=== PATIENT | female | born 1995 | race Caucasian/White ===

== ENCOUNTER → 2017-11-14 | Outpatient (CLI) | payer OTHER ==
[~2017-11-14] MED LIST: BIRTH CONTROL; CIPROFLOXACIN500 M1 PO; EXCEDRIN CAPLE1 EACH PO; FLOMAX0.4 MG PO; LEXAPRO 10 MG T10 M2 PO; PERCOCET 5-3251 EACH PO; VISTARIL 25 MG25 M1 PO
[2017-11-14 16:52] LABS: HEMATOCRIT 40.8 % (37.0-47.0); HEMOGLOBIN 13.8 gm/dL (12.0-15.0); MCH 29.3 pg (26.0-34.0); MCHC 33.8 g/dL (28.0-37.0); MCV 86.6 fL (80.0-100.0); MPV 7.4 fl. (7.2-11.1); RBC 4.71 mil/uL (4.20-5.00); RDW-CV 13.2 % (10.5-14.5); WBC 6.1 thou/uL (4.0-11.0)
== END ==
LOC: M.LAB 16:28
PROVIDERS: Orthopaedic Surgery
DX: M25.571 Pain in right ankle and joints of right foot (principal)

== ENCOUNTER → 2017-11-19 | Outpatient (CLI) | payer OTHER ==
[2017-11-21 09:11] LABS: ANA INTERPRETATION Negative (Negative)
== END ==
LOC: M.LAB 15:24
PROVIDERS: Orthopaedic Surgery
DX: M25.571 Pain in right ankle and joints of right foot (principal)

== ENCOUNTER 2017-11-20 16:43 | Emergency (ER) | payer OTHER ==
[~2017-11-20] VITALS: Ht 165.1 cm; Wt 113.4 kg
[~2017-11-20 16:43] MED LIST changes: -BIRTH CONTROL; -EXCEDRIN CAPLE1 EACH PO; -VISTARIL 25 MG25 M1 PO
[2017-11-20] MEDS ORDERED: EXCEDRIN CAPLE1 EACH PO (16:49)
[2017-11-20] MEDS ORDERED: BIRTH CONTROL (16:50)
[2017-11-20 17:26] LABS: URINE BILIRUBIN NEGATIVE (Negative); URINE BLOOD NEGATIVE (Negative); URINE CLARITY CLEAR; URINE COLOR YELLOW; URINE GLUCOSE-RANDOM NEGATIVE (Negative); URINE KETONES NEGATIVE (Negative); URINE LEUKOCYTES-REFLEX NEGATIVE (Negative); URINE NITRITE-REFLEX NEGATIVE (Negative); URINE PROTEIN NEGATIVE (Negative); URINE UROBILINOGEN 0.2 E.U./dl (0.2-1.0)
[2017-11-20 17:28] LABS: ABSOLUTE BASOPHILS 0.1 thou/uL (0.0-0.2); ABSOLUTE EOSINOPHILS 0.1 thou/uL (0.0-0.7); ABSOLUTE LYMPHOCYTES 2.7 thou/uL (0.8-5.3); ABSOLUTE MONOCYTES 0.8 thou/uL (0.0-1.2); ABSOLUTE NEUTROPHILS 9.9 thou/uL (1.6-8.1); BASOPHILS 0.6 %; EOSINOPHILS 0.4 %; HEMATOCRIT 44.2 % (37.0-47.0); HEMOGLOBIN 14.7 gm/dL (12.0-15.0); MCHC 33.3 g/dL (28.0-37.0); MCV 87.1 fL (80.0-100.0); MPV 7.3 fl. (7.2-11.1); NUCLEATED RBCS 0 /100WBC; PLATELET COUNT* 321 thou/uL (150-400); RBC 5.07 mil/uL (4.20-5.00); RDW-CV 13.4 % (10.5-14.5); WBC 13.6 thou/uL (4.0-11.0)
[2017-11-20 17:35] LABS: AMP/METHAMP Negative (Negative); BARBITURATES Negative (Negative); BENZODIAZEPINES Negative (Negative); COCAINE Negative (Negative); METHADONE Negative (Negative); OPIATES Negative (Negative); PCP Negative (Negative); THC Negative (Negative)
[2017-11-20 17:40] LABS: CALCIUM 9.1 mg/dL (8.5-10.1); POTASSIUM 3.8 mmol/L (3.5-5.1)
[2017-11-20 17:45] LABS: MAGNESIUM 2.2 mg/dL (1.8-2.4); TOTAL BILIRUBIN 0.3 mg/dL (<0.1-1.0); TOTAL PROTEIN 7.2 g/dL (6.4-8.2)
[2017-11-20] MEDS ORDERED: VISTARIL 25 MG25 M1 PO (18:32)
[2017-11-20 18:39] VITALS: BP 126/82
== END 2017-11-20 18:40 | disposition home or self-care (01) ==
LOC: M.ERS 16:43
PROVIDERS: Physician Assistant
DX: R25.1 Tremor, unspecified (principal); F41.9 Anxiety disorder, unspecified

== ENCOUNTER 2019-08-17 17:28 | Emergency (ER) | payer OTHER ==
[~2019-08-17] VITALS: Ht 167.6 cm; Wt 127.0 kg
[~2019-08-17 17:28] MED LIST changes: +BIRTH CONTROL; +EXCEDRIN CAPLE1 EACH PO; +VISTARIL 25 MG25 M1 PO
[2019-08-17] MEDS ORDERED: KEPPRA XR500 MG PO (17:42)
[2019-08-17 18:22] VITALS: BP 145/85
== END 2019-08-17 18:23 | disposition home or self-care (01) ==
LOC: M.ERS 17:28
DX: S61.011A Laceration without foreign body of right thumb without damage to nail, initial encounter (principal); W26.8XXA Contact with other sharp object(s), not elsewhere classified, initial encounter; Y93.89 Activity, other specified; Y92.89 Other specified places as the place of occurrence of the external cause; Y99.8 Other external cause status

== ENCOUNTER 2019-10-19 14:25 | Emergency (ER) | payer OTHER ==
[~2019-10-19] VITALS: Ht 167.6 cm; Wt 127.0 kg
[~2019-10-19 14:25] MED LIST changes: +KEPPRA XR500 MG PO
[2019-10-19] MEDS ORDERED: IBUPROFEN 800800 M1 PO (15:45)
[2019-10-19] MEDS ORDERED: ZANAFLEX4 MG PO (15:45)
[2019-10-19] MEDS ORDERED: NORCO 5-325 TA1 EAC1 PO (15:45)
[2019-10-19 15:59] VITALS: BP 120/73
== END 2019-10-19 16:02 | disposition home or self-care (01) ==
LOC: M.ERS 14:25
DX: S80.11XA Contusion of right lower leg, initial encounter (principal); M53.3 Sacrococcygeal disorders, not elsewhere classified; Z91.041 Radiographic dye allergy status; Z88.8 Allergy status to other drugs, medicaments and biological substances; W10.8XXA Fall (on) (from) other stairs and steps, initial encounter; Y93.89 Activity, other specified; Y92.098 Other place in other non-institutional residence as the place of occurrence of the external cause; Y99.8 Other external cause status

== ENCOUNTER 2019-12-14 13:19 | Emergency (ER) | payer OTHER ==
[~2019-12-14] VITALS: Ht 167.6 cm; Wt 130.6 kg
[~2019-12-14 13:19] MED LIST changes: +IBUPROFEN 800800 M1 PO; +NORCO 5-325 TA1 EAC1 PO; +ZANAFLEX4 MG PO
[2019-12-14] MEDS ORDERED: MELOXICAM15 MG PO (13:33)
[2019-12-14] MEDS ORDERED: HYDROXYZINE PAM25 M1 PO (13:34)
[2019-12-14] MEDS ORDERED: KEPPRA1000 MG PO (13:34)
[2019-12-14 13:54] LABS: ABSOLUTE BASOPHILS 0.1 thou/uL (0.0-0.2); ABSOLUTE EOSINOPHILS 0.1 thou/uL (0.0-0.7); ABSOLUTE LYMPHOCYTES 1.6 thou/uL (0.8-5.3); ABSOLUTE MONOCYTES 0.3 thou/uL (0.0-1.2); ABSOLUTE NEUTROPHILS 5.1 thou/uL (1.6-8.1); BASOPHILS 0.9 %; EOSINOPHILS 0.8 %; HEMATOCRIT 38.8 % (37.0-47.0); HEMOGLOBIN 13.3 gm/dL (12.0-15.0); LYMPHOCYTES 21.8 %; MCH 29.3 pg (26.0-34.0); MCHC 34.4 g/dL (28.0-37.0); MCV 85.2 fL (80.0-100.0); MONOCYTES 4.7 %; MPV 7.6 fl. (7.2-11.1); NUCLEATED RBCS 0 /100WBC; PLATELET COUNT* 298 thou/uL (150-400); POLYS 71.8 %; RBC 4.55 mil/uL (4.20-5.00); RDW-CV 12.7 % (10.5-14.5); WBC 7.1 thou/uL (4.0-11.0)
[2019-12-14 14:06] LABS: CALCIUM 8.9 mg/dL (8.5-10.1); CREATININE 0.8 mg/dL (0.6-1.3)
[2019-12-14 14:11] LABS: ALBUMIN 3.4 g/dL (3.4-5.0); TOTAL BILIRUBIN 0.2 mg/dL (<0.1-1.0); TOTAL PROTEIN 6.8 g/dL (6.4-8.2)
[2019-12-14 14:25] LABS: URINE BILIRUBIN NEGATIVE (Negative); URINE BLOOD NEGATIVE (Negative); URINE CLARITY CLEAR; URINE COLOR YELLOW; URINE GLUCOSE-RANDOM NEGATIVE (Negative); URINE KETONES NEGATIVE (Negative); URINE LEUKOCYTES-REFLEX NEGATIVE (Negative); URINE NITRITE-REFLEX NEGATIVE (Negative); URINE PROTEIN NEGATIVE (Negative); URINE UROBILINOGEN 0.2 E.U./dl (0.2-1.0)
[2019-12-14 14:32] LABS: AMP/METHAMP Negative (Negative); BARBITURATES Negative (Negative); BENZODIAZEPINES Negative (Negative); COCAINE Negative (Negative); METHADONE Negative (Negative); OPIATES Negative (Negative); PCP Negative (Negative); THC Negative (Negative)
[2019-12-14 15:48] VITALS: BP 114/68
== END 2019-12-14 15:49 | disposition home or self-care (01) ==
LOC: M.ERS 13:19
PROVIDERS: Family Medicine
DX: R56.9 Unspecified convulsions (principal); Z91.041 Radiographic dye allergy status

== ENCOUNTER → 2020-11-24 | Outpatient (CLI) | payer OTHER ==
[~2020-11-24] MED LIST changes: +HYDROXYZINE PAM25 M1 PO; +KEPPRA1000 MG PO; +MELOXICAM15 MG PO
== END ==
LOC: M.LAB 07:05
PROVIDERS: ATTEND Orthopaedic Surgery
DX: Z01.812 Encounter for preprocedural laboratory examination (principal); Z20.822 Contact with and (suspected) exposure to COVID-19; G56.02 Carpal tunnel syndrome, left upper limb